=== PATIENT | female | born 1970 | race Caucasian/White ===

== ENCOUNTER 2022-08-26 00:34 | Emergency (ER) | payer BC, MEDICAID, SELFPAY ==
[2022-08-26 00:36] VITALS: BP 157/106; PULSE 102; RESP 16; TEMP 36.7; O2SAT 99
[2022-08-26 00:55] VITALS: PULSE 97; RESP 16; O2SAT 100
[2022-08-26 00:56] VITALS: O2SAT 99
[2022-08-26 00:58] VITALS: BP 152/90
--- NOTE | 2022-08-26 01:13 | ED.GENADULT ---
HPI - General Adult General Chief complaint: Abdominal Pain Stated complaint: abdominal migraine, headache, n/v Time Seen by Provider: 08/26/22 00:50 Source: patient Mode of arrival: ambulatory Limitations: no limitations History of Present Illness HPI narrative: This is a 52-year-old female with PMH of abdominal migraine, HTN who presents to the ED with chief complaint of generalized abdominal pain ongoing for the past couple of days. Patient states that she has been under a lot of stress lately and feels like that she is probably having an abdominal migraine. She states this is very familiar to her. Reports the pain is located across the abdomen and feels worse in the diaphragm area. She states that she has had a recent cough which may be exacerbating some of this pain. Reports nausea with around 3-4 episodes of vomiting. Denies hematemesis or bloody stools. Bowel movement last night. Denies headache, urinary symptoms, chest pain, shortness of breath. Additionally reports that she has not taken her blood pressure medications today. Related Data Allergies Allergy/AdvReac Type Severity Reaction Status Date / Time lisinopril AdvReac Cough Verified 08/26/22 00:57 Exam Narrative: GENERAL: Well-appearing, well-nourished, and in no acute distress. HEAD: Normocephalic, atraumatic. EYES: PERRLA and EOMI. ENT: Nares clear, no rhinorrhea or epistaxis. Mucous membranes moist. Oropharynx without tonsillar hypertrophy exudate or other lesions. NECK: Supple. No adenopathy or masses. CHEST: No respiratory distress. Clear to auscultation. No wheezes rales or rhonchi HEART: Regular rate and rhythm. No murmur heard. Normal peripheral pulses. ABDOMEN: Soft, nontender, nondistended, normal active bowel sounds. MSK: Normal range of motion. No edema. SKIN: Warm, dry, no rash. NEURO: Alert and oriented x3. No focal deficits. PSYCH: Normal mood and affect. Course Course Emergency Course: Reevaluation 0230: Patient is sleeping when I enter the room. Her symptoms have greatly improved. Vital Signs Vital signs: Vital Signs Temperature 98.1 F 08/26/22 00:36 Pulse Rate 102 H 08/26/22 00:36 Respiratory Rate 16 08/26/22 00:36 Blood Pressure 157/106 H 08/26/22 00:36 Pulse Oximetry 99 08/26/22 00:36 Oxygen Delivery Room Air 08/26/22 00:36 Temperature 98.1 F 08/26/22 00:36 Pulse Rate 97 08/26/22 00:55 Respiratory Rate 16 08/26/22 00:55 Blood Pressure 152/90 H 08/26/22 00:58 Pulse Oximetry 99 08/26/22 00:56 Oxygen Delivery Room Air 08/26/22 00:56 Medical Decision Making MDM Narrative Medical decision making narrative: This is a 52-year-old female who presents to the ED with chief complaint of abdominal migraine. This presentation is very familiar to the patient. Vitals show initial tachycardia 102, however she is hemodynamically stable. Afebrile. Tachycardia improved with fluids over her visit. Exam does not reveal any abdominal tenderness. Overall exam is benign. Lab work largely unremarkable. Symptoms consistent with abdominal migraine with her recent stressors. On my reevaluation she is sleeping in the room and feeling much better. She states she is ready to go home. Vitals remained stable. She will be discharged in stable condition. Return precautions given and supportive measures discussed. Patient is understanding and agreeable with the plan for discharge and follow-up with her PCP. Vital Signs Vital Signs: Vital Signs Temperature 98.1 F 08/26/22 00:36 Pulse Rate 102 H 08/26/22 00:36 Respiratory Rate 16 08/26/22 00:36 Blood Pressure 157/106 H 08/26/22 00:36 Pulse Oximetry 99 08/26/22 00:36 Oxygen Delivery Room Air 08/26/22 00:36 Temperature 98.1 F 08/26/22 00:36 Pulse Rate 97 08/26/22 00:55 Respiratory Rate 16 08/26/22 00:55 Blood Pressure 152/90 H 08/26/22 00:58 Pulse Oximetry 99 08/26/22 00:56 Oxygen Delivery Room Air 08/26/22
[2022-08-26] MEDS: MAG HYDROX/AL HYDROX/SIMETH 30 ML UDC PO (01:47)
[2022-08-26] MEDS: SODIUM CHLORIDE 0.9% IV 1,000 ML 999 ML IV CONT (02:03)
[2022-08-26] MEDS: ONDANSETRON INJ 4 MG/2 ML VIAL IV PUSH (02:03)
[2022-08-26] MEDS: HYDROmorphone HCL INJ (*CRX) 1 MG/ML SYR 0.5 MG IV PUSH (02:04)
[2022-08-26 03:18] LABS: Basophils Absolute Auto 0.1 K/mm3 (0.0-0.1); Basophils Percent Auto 0.6 % (0.2-1.2); Eosinophils Percent Auto 0.1 % (0-4.4); Hematocrit 46.4 % (37.0-47.0); Hemoglobin 15.1 g/dL (12.0-15.0); Immature Granulocyte Absolute 0.05 K/mm3 (0.00-0.031); Immature Granulocyte Percent A 0.6 % (0-0.5); Lymphocytes Percent Auto 14.8 % (18.3-44.2); Mean Corpuscular HGB Conc 32.5 g/dl (32-36); Mean Corpuscular Hemoglobin 29.4 pg (26-34); Mean Corpuscular Volume 90.3 fl (80-100); Mean Platelet Volume 8.9 fl (7.4-10.4); Monocytes Absolute Auto 0.4 K/mm3 (0.1-0.6); Neutrophils Percent Auto 79.9 % (45.5-73.1); Platelet Count Result 342 k/mm3 (150-375); Red Blood Count 5.14 M/mm3 (4.2-5.4); Red Cell Distribution Width 13.6 % (11.5-14.5); White Blood Count 8.8 K/mm3 (4.5-10.0)
[2022-08-26 03:28] LABS: Alanine Aminotransferase 25 U/L (6-35); Albumin Level 4.4 g/dL (3.5-5.1); Alkaline Phosphatase 101 U/L (38-126); Anion Gap 4 mmol/L (8-16); Aspartate Amino Transferase 23 U/L (14-36); Bilirubin,Total 0.4 mg/dL (0.2-1.3); Blood Urea Nitrogen 14 mg/dL (7-17); Calcium 8.9 mg/dL (8.4-10.2); Carbon Dioxide 29 mmol/L (22-30); Chloride 104 mmol/L (98-107); Estimated CRCL calculation 110 ml/min; Estimated Glomerular Filt Rate > 60; Glucose 136 mg/dL (65-110); Lipase 51 U/L (23-300); Sodium 137 mmol/L (137-145)
--- NOTE | 2022-08-26 09:54 | ECG_ITS ---
Measurements Intervals [place] Rate: 90 P: 27 TN: 152 QRS: 15 QRSD: 94 T: 11 QT: 377 QTc: 463 Interpretive Statements SINUS RHYTHM BORDERLINE T WAVE ABNORMALITY- ANT/INF LEADS BASELINE ARTIFACT- I, II, III, AVR, AVL BORDERLINE ECG NO PREVIOUS ECG AVAILABLE FOR COMPARISON Electronically Signed On 08-28-2022 8:38:21 CDT by Sigifredo Castillo D.O.
== END 2022-08-26 03:45 | disposition home or self-care (01) ==
PROVIDERS: Emergency Provider Physician Assistant
DX: G43.D0 Abdominal migraine, not intractable (principal); I10 Essential (primary) hypertension
CPT/HCPCS: 36415; 80053; 83690; 85025; 93005; 96361; 96374; 96375; 99284; A9270; J1170; J2405; J7030